=== PATIENT | male | born 1965 | race Asian ===

== ENCOUNTER → 2017-07-05 | Outpatient (CLI) | payer OTHER ==
[~2017-07-05] MED LIST: ALLO100T PO; AMLO10TA55 PO; ASPI-556 PO; HYDR25TA PO; LABE100 PO; LISI-618 PO; SIMV10TA6 PO
== END | disposition home or self-care (01) ==
LOC: RADPV 10:28
PROVIDERS: ATTEND Family Medicine
DX: M17.0 Bilateral primary osteoarthritis of knee (principal)

== ENCOUNTER → 2017-08-21 | Outpatient (CLI) | payer OTHER ==
[2017-08-21 12:08] LABS: BASOPHILS % (AUTO) 0.4 % (0.0-2.0); EOSINOPHILS % (AUTO) 4.9 % (1.0-6.0); HEMATOCRIT 47.7 % (41-53); HEMOGLOBIN 16.4 g/dL (13.5-17.5); LYMPHOCYTES # (AUTO) 1.8 K/uL (1.0-4.8); LYMPHOCYTES % (AUTO) 25.9 % (22.0-44.0); MEAN CORPUSCULAR HEMOGLOBIN 29.4 pg (26.0-34.0); MEAN CORPUSCULAR HGB CONC 34.3 G/dL (31.0-37.0); MEAN CORPUSCULAR VOLUME 86 fL (80-100); MONOCYTES # (AUTO) 0.7 K/uL (0.1-1.0); MONOCYTES % (AUTO) 9.8 % (2.0-9.0); NEUTROPHILS # (AUTO) 4.1 K/uL (1.8-7.7); PLATELET COUNT (AUTO) 231 K/uL (150-450); RED BLOOD CELL COUNT(AUTO) 5.57 MIL/uL (4.50-5.90); RED CELL DISTRIBUTION WIDTH 13.1 % (11.5-14.5)
[2017-08-21 12:41] LABS: PROSTATE SPECIFIC ANTIGEN 0.97 ng/mL (0.00-4.00)
[2017-08-21 13:28] LABS: ALANINE AMINOTRANSFERASE 34 U/L (12-78); ALBUMIN 4.4 g/dL (3.4-5.0); ALKALINE PHOSPHATASE 70 U/L (46-116); ANION GAP 8 mmol/L (8-16); ASPARTATE AMINOTRANSFERASE 25 U/L (15-37); BILIRUBIN,TOTAL 0.8 mg/dL (0.1-1.0); CARBON DIOXIDE 29 mmol/L (22-29); CHLORIDE 103 mmol/L (98-107); CHOL/HDL RATIO 3.1 (4.2-7.3); CHOLESTEROL 116 mg/dL (131-200); CREATININE 1.01 mg/dL (0.60-1.30); GLOMERULAR FILTR. RATE CALC > 60 mL/min (>60); GLUCOSE,RANDOM 105 mg/dL (70-110); HDL CHOLESTEROL 37 mg/dL (40-60); LDL CHOL (CALC.) 65 mg/dL (0-130); POTASSIUM 3.8 mmol/L (3.5-5.1); SODIUM SERUM 140 mmol/L (136-145); THYROID STIMULATING HORMONE 0.87 uIU/mL (0.36-3.74); TOTAL PROTEIN, SERUM 8.5 g/dL (6.4-8.2); TRIGLYCERIDES 70 mg/dL (15-150); UREA NITROGEN, BLOOD 19 mg/dL (7-18)
[2017-08-21 13:49] LABS: URIC ACID 7.9 mg/dL (2.6-7.2)
== END | disposition home or self-care (01) ==
LOC: LABPV 08-17 10:25
PROVIDERS: ATTEND Family Medicine
DX: R03.0 Elevated blood-pressure reading, without diagnosis of hypertension (principal); E78.5 Hyperlipidemia, unspecified; M10.9 Gout, unspecified; M19.90 Unspecified osteoarthritis, unspecified site
CPT/HCPCS: 84153; 84443; 84550

== ENCOUNTER 2018-07-10 09:27 | Emergency (ER) | payer MEDICAID, OTHER ==
[~2018-07-10] VITALS: Ht 170.2 cm; Wt 100.0 kg
[2018-07-10 11:43] VITALS: BP 184/99
== END 2018-07-10 11:45 | disposition home or self-care (01) ==
LOC: EMS 09:28
DX: R04.0 Epistaxis (principal); I10 Essential (primary) hypertension; Z79.899 Other long term (current) drug therapy; Z79.82 Long term (current) use of aspirin; Z86.79 Personal history of other diseases of the circulatory system

== ENCOUNTER 2019-02-07 08:30 | Emergency (ER) | payer MEDICAID ==
[~2019-02-07] VITALS: Ht 170.2 cm; Wt 95.5 kg
[~2019-02-07 08:30] MED LIST changes: -LABE100 PO; +LABE100T8 PO
[2019-02-07] MEDS ORDERED: KETOROLAC TROMETHAMINE 30 MG/ML VIAL IM ONE (09:30)
[2019-02-07] MEDS ORDERED: MORPHINE SULFATE 4 MG/ML SYRINGE IM ONE (09:30)
[2019-02-07 10:53] VITALS: BP 184/94
== END 2019-02-07 11:09 | disposition home or self-care (01) ==
LOC: EMS 08:32
DX: M10.9 Gout, unspecified (principal); M17.11 Unilateral primary osteoarthritis, right knee; I10 Essential (primary) hypertension; E78.00 Pure hypercholesterolemia, unspecified; Z79.899 Other long term (current) drug therapy
CPT/HCPCS: 73562; 96372; 99283; J1885; J2270

== ENCOUNTER → 2019-12-11 | Outpatient (CLI) | payer OTHER ==
[~2019-12-11] MED LIST changes: +ALLO-44 PO; -ALLO100T PO; -ASPI-556 PO; -SIMV10TA6 PO; +SIMV10TA97 PO
[2019-12-11 12:48] LABS: BASOPHILS % (AUTO) 0.4 % (0.0-2.0); EOSINOPHILS % (AUTO) 2.6 % (1.0-6.0); HEMATOCRIT 45.3 % (41-53); HEMOGLOBIN 15.2 g/dL (13.5-17.5); LYMPHOCYTES # (AUTO) 1.6 K/uL (1.0-4.8); LYMPHOCYTES % (AUTO) 24.6 % (22.0-44.0); MEAN CORPUSCULAR HEMOGLOBIN 29.3 pg (26.0-34.0); MEAN CORPUSCULAR HGB CONC 33.7 G/dL (31.0-37.0); MEAN CORPUSCULAR VOLUME 87 fL (80-100); MONOCYTES # (AUTO) 0.6 K/uL (0.1-1.0); MONOCYTES % (AUTO) 9.4 % (2.0-9.0); NEUTROPHILS # (AUTO) 4.1 K/uL (1.8-7.7); PLATELET COUNT (AUTO) 228 K/uL (150-450)
[2019-12-11 13:33] LABS: ALBUMIN 4.3 g/dL (3.4-5.0); BILIRUBIN,TOTAL 0.7 mg/dL (0.1-1.0); CALCIUM, TOTAL 9.2 mg/dL (8.8-10.5); CHOL/HDL RATIO 3.7 (4.2-7.3); CREATININE 1.24 mg/dL (0.60-1.30); POTASSIUM 3.7 mmol/L (3.5-5.1); THYROID STIMULATING HORMONE 0.68 uIU/mL (0.36-3.74); TOTAL PROTEIN, SERUM 8.7 g/dL (6.4-8.2)
[2019-12-11 13:42] LABS: URIC ACID 9.1 mg/dL (2.6-7.2)
[2019-12-11 14:00] LABS: PROSTATE SPECIFIC ANTIGEN 1.4 ng/mL (0.00-4.00)
== END | disposition home or self-care (01) ==
LOC: LABPV 08:39
PROVIDERS: ATTEND Family Medicine
DX: M10.9 Gout, unspecified (principal); M19.90 Unspecified osteoarthritis, unspecified site; Z79.899 Other long term (current) drug therapy
CPT/HCPCS: 84153; 84443; 84550

== ENCOUNTER 2020-05-15 23:21 | Emergency (ER) | payer MEDICAID, OTHER ==
[~2020-05-15] VITALS: Ht 170.2 cm; Wt 95.5 kg
[~2020-05-15 23:21] MED LIST changes: -ALLO-44 PO; +ALLO100T2 PO
[2020-05-16 00:09] LABS: BASOPHILS % (AUTO) 0.5 % (0.0-2.0); EOSINOPHILS % (AUTO) 4.1 % (1.0-6.0); HEMATOCRIT 41.2 % (41-53); HEMOGLOBIN 13.8 g/dL (13.5-17.5); LYMPHOCYTES % (AUTO) 28.4 % (22.0-44.0); MEAN CORPUSCULAR HEMOGLOBIN 29.3 pg (26.0-34.0); MEAN CORPUSCULAR HGB CONC 33.6 G/dL (31.0-37.0); MEAN CORPUSCULAR VOLUME 87 fL (80-100); MONOCYTES # (AUTO) 0.8 K/uL (0.1-1.0); MONOCYTES % (AUTO) 11.2 % (2.0-9.0); NEUTROPHILS # (AUTO) 3.9 K/uL (1.8-7.7); NEUTROPHILS % (AUTO) 55.8 % (40.0-70.0); PLATELET COUNT (AUTO) 212 K/uL (150-450); RED BLOOD CELL COUNT(AUTO) 4.73 MIL/uL (4.50-5.90); RED CELL DISTRIBUTION WIDTH 14.3 % (11.5-14.5)
[2020-05-16 00:19] LABS: CALCIUM, TOTAL 8.5 mg/dL (8.8-10.5); CREATININE 1.5 mg/dL (0.60-1.30); POTASSIUM 3.4 mmol/L (3.5-5.1)
[2020-05-16 00:24] LABS: PROTHROMBIN TIME 10.2 SEC (9.4-11.6)
[2020-05-16 00:37] LABS: ALBUMIN 3.8 g/dL (3.4-5.0); BILIRUBIN,TOTAL 0.4 mg/dL (0.1-1.0); TOTAL PROTEIN, SERUM 7.8 g/dL (6.4-8.2)
[2020-05-16] MEDS ORDERED: FAMOTIDINE 20 MG TABLET PO ONE (02:15)
[2020-05-16] MEDS ORDERED: MAG HYDROX/AL HYDROX/SIMETH 30 ML SUSP UDCUP PO ONE (02:15)
[2020-05-16] MEDS ORDERED: LABETALOL HCL 100 MG TABLET PO ONE (05:30)
[2020-05-16] MEDS ORDERED: AmLODIPine BESYLATE 5 MG TABLET PO ONE (05:30)
[2020-05-16 06:01] VITALS: BP 189/98
== END 2020-05-16 06:21 | disposition home or self-care (01) ==
LOC: EMS 23:23
DX: I10 Essential (primary) hypertension (principal); E78.00 Pure hypercholesterolemia, unspecified; Z86.73 Personal history of transient ischemic attack (TIA), and cerebral infarction without residual deficits; Z79.899 Other long term (current) drug therapy
CPT/HCPCS: 93005; 36415-L1; 36415-TC; 71045-TC

== ENCOUNTER 2023-01-06 11:15 | Emergency (ER) | payer MEDICAID, OTHER ==
[~2023-01-06] VITALS: Ht 170.2 cm; Wt 100.0 kg
[~2023-01-06 11:15] MED LIST changes: +ALLO-97 PO; -ALLO100T2 PO; +LABE100T51 PO; -LABE100T8 PO; -LISI-618 PO; +LISI20TA24 PO
[2023-01-06 12:43] VITALS: BP 162/97; PULSE 79; RESP 18; TEMP 98.7
[2023-01-06] MEDS ORDERED: IBUP-1492 PO ×2 (12:45→12:55)
[2023-01-06] MEDS ORDERED: PredniSONE 20 MG TABLET PO ONE (12:45)
[2023-01-06] MEDS ORDERED: TraMADol HCL 50 MG TABLET PO ONE (12:45)
[2023-01-06] MEDS ORDERED: PRED-554 PO ×2 (12:45→12:55)
[2023-01-06] MEDS ORDERED: TRAM-559 PO ×2 (12:45→12:55)
== END 2023-01-06 13:51 | disposition home or self-care (01) ==
LOC: EMS 11:17
DX: M10.072 Idiopathic gout, left ankle and foot (principal); M10.071 Idiopathic gout, right ankle and foot; E78.00 Pure hypercholesterolemia, unspecified; I10 Essential (primary) hypertension
CPT/HCPCS: 99283; J7512

== ENCOUNTER 2023-11-28 11:15 | Emergency (ER) | payer OTHER ==
[~2023-11-28] VITALS: Ht 170.2 cm; Wt 95.4 kg
[~2023-11-28 11:15] MED LIST changes: +IBUP-1492 PO; +PRED-554 PO; +TRAM50TA5 PO
[2023-11-28 11:27] VITALS: TEMP 97.9
[2023-11-28] MEDS: KETOROLAC TROMETHAMINE 30 MG/ML VIAL IM ONE (14:48)
[2023-11-28] MEDS: PredniSONE 20 MG TABLET PO ONE (14:48)
[2023-11-28] MEDS: HYDROCODONE/ACETAMINOPHEN 5-325 MG TABLET PO ONE (14:48)
[2023-11-28] MEDS ORDERED: PRED-554 PO (15:39)
[2023-11-28 16:17] VITALS: BP 156/89; PULSE 75; RESP 18
== END 2023-11-28 16:18 | disposition home or self-care (01) ==
LOC: EMS 11:15
DX: M10.9 Gout, unspecified (principal); M79.671 Pain in right foot; M79.672 Pain in left foot; I10 Essential (primary) hypertension; E78.5 Hyperlipidemia, unspecified; Z79.899 Other long term (current) drug therapy
CPT/HCPCS: 99283; 96372; J1885; J7512

== ENCOUNTER 2024-01-05 09:39 | Emergency (ER) | payer OTHER ==
[~2024-01-05] VITALS: Ht 170.2 cm; Wt 95.5 kg
[2024-01-05 09:44] VITALS: TEMP 98.3
[2024-01-05 09:57] VITALS: BP 149/90; PULSE 92; RESP 16; O2SAT 99
[2024-01-05] MEDS: OxyCODONE HCL/ACETAMINOPHEN 5-325 MG TABLET PO ONE (10:37)
[2024-01-05] MEDS: INDOMETHACIN 50 MG CAPSULE PO ONE (10:44)
[2024-01-05] MEDS ORDERED: COLC-3 PO (11:19)
[2024-01-05] MEDS ORDERED: INDO-16 PO (11:19)
== END 2024-01-05 11:41 | disposition home or self-care (01) ==
LOC: EMS 09:43
DX: M10.071 Idiopathic gout, right ankle and foot (principal); I10 Essential (primary) hypertension
CPT/HCPCS: 99283

== ENCOUNTER 2025-04-20 05:33 | Day surgery (SDC) | payer OTHER ==
[~2025-04-20] VITALS: Ht 170.2 cm; Wt 97.7 kg
[~2025-04-20 05:33] MED LIST changes: -AMLO10TA55 PO; +COLC-3 PO; -IBUP-1492 PO; +INDO-16 PO; -PRED-554 PO; +SODIUM CHLORIDE 0.9% 1,000 ML ONE; -TRAM50TA5 PO
[2025-04-20] MEDS ORDERED: LIDOCAINE/PF 2% 5 ML VIAL IM ONE (05:34)
[2025-04-20] MEDS ORDERED: PROPOFOL 1% ISO-OSM 1000 MG/100 ML BOTTLE IV ONE (05:34)
[2025-04-20] MEDS ORDERED: PROPOFOL 1% 20 ML VIAL IVP ONE (05:34)
[2025-04-20] MEDS: SODIUM CHLORIDE 0.9% 1,000 ML IV ONE (06:14)
[2025-04-20 09:16] LABS: GLUCOMETER DEV NAME(LOC) SDS.; GLUCOSE,POINT OF CARE 107 MG/DL (70-110)
== END 2025-04-20 09:05 | disposition home or self-care (01) ==
LOC: SURGERY 05:33
PROVIDERS: ATTEND Surgery
DX: Z12.11 Encounter for screening for malignant neoplasm of colon (principal); D12.3 Benign neoplasm of transverse colon; K62.1 Rectal polyp; K57.30 Diverticulosis of large intestine without perforation or abscess without bleeding; E11.9 Type 2 diabetes mellitus without complications; E66.9 Obesity, unspecified; I10 Essential (primary) hypertension; M10.9 Gout, unspecified; Z68.36 Body mass index [BMI] 36.0-36.9, adult; Z98.890 Other specified postprocedural states; Z86.73 Personal history of transient ischemic attack (TIA), and cerebral infarction without residual deficits; Z82.3 Family history of stroke; Z82.49 Family history of ischemic heart disease and other diseases of the circulatory system; Z82.5 Family history of asthma and other chronic lower respiratory diseases; Z82.0 Family history of epilepsy and other diseases of the nervous system
CPT/HCPCS: 45385; 82962; J2704 ×2; J3490; J7030; 88305

== ENCOUNTER 2025-04-22 08:57 | Emergency (ER) | payer OTHER ==
[~2025-04-22] VITALS: Ht 170.2 cm; Wt 81.8 kg
[~2025-04-22 08:57] MED LIST changes: -SODIUM CHLORIDE 0.9% 1,000 ML ONE
[2025-04-22 08:59] VITALS: BP 134/68; PULSE 80; RESP 16; TEMP 98.4; O2SAT 100
[2025-04-22] MEDS: ACETAMINOPHEN 500 MG TABLET PO ONE (09:36)
[2025-04-22] MEDS: OxyCODONE HCL 5 MG IR TABLET PO ONE (09:36)
[2025-04-22] MEDS: KETOROLAC TROMETHAMINE 30 MG/ML VIAL IM ONE (09:36)
[2025-04-22 09:46] LABS: PLATELET COUNT (AUTO) 239 K/uL (150-450); RED BLOOD CELL COUNT(AUTO) 5.10 MIL/uL (4.50-5.90); RED CELL DISTRIBUTION WIDTH 14.5 % (11.5-14.5); WHITE BLOOD COUNT (AUTO) 9.2 K/uL (4.5-11.0)
[2025-04-22 09:53] LABS: CALCIUM, TOTAL 9.1 mg/dL (8.8-10.5); CREATININE 1.58 mg/dL (0.60-1.30); GLOMERULAR FILTR. RATE CALC 45.0 mL/min (>60); GLUCOSE,RANDOM 157.0 mg/dL (70-110); SODIUM SERUM 139.0 mmol/L (136-145); UREA NITROGEN, BLOOD 34.0 mg/dL (7-18)
[2025-04-22] MEDS ORDERED: OXYC5 PO (10:47)
== END 2025-04-22 11:23 | disposition home or self-care (01) ==
LOC: EMS 08:57
DX: M79.604 Pain in right leg (principal); E11.9 Type 2 diabetes mellitus without complications; E78.00 Pure hypercholesterolemia, unspecified; I10 Essential (primary) hypertension; M10.9 Gout, unspecified; Z86.73 Personal history of transient ischemic attack (TIA), and cerebral infarction without residual deficits; Z79.899 Other long term (current) drug therapy
CPT/HCPCS: 99285; 93971; 80048; 82962; 85025; 36415; 96372; J1885